=== PATIENT | female | born 2005 | race Two or more races ===

== ENCOUNTER 2025-09-18 02:19 | Emergency (ER) | payer MEDICAID, SELFPAY ==
[2025-09-18 02:20] VITALS: BMI 25.7
[2025-09-18 02:29] VITALS: BP 121/78; PULSE 90; RESP 18; TEMP 36.9; O2SAT 97
--- NOTE | 2025-09-18 02:52 | XR_ITS ---
Examination: Abdomen sonogram, Limited Date and time of exam: September 18, 2025, 0305 hours INDICATIONS: Abdominal pain beginning 3 days ago Technique: Real-time adame scale transabdominal sonographic images of the upper abdomen obtained. Findings: Normal gallbladder Normal common bile duct 0.2 cm Pancreatic head 2.0 cm Liver 13.3 cm no liver lesions Normal hepatopetal portal venous flow Patent IVC IMPRESSION: Negative study
--- NOTE | 2025-09-18 02:52 | XR_ITS ---
Examination: Retroperitoneal ultrasound, complete Technique: Multiple high resolution grayscale images of the retroperitoneum obtained, including kidneys and bladder. Exam date and time: September 18, 2025, 0312 hours INDICATIONS: Abdominal pain back pain beginning 3 days ago. FINDINGS: Right kidney 10.3 cm renal cortex 1.5 cm Left kidney 10.5 cm renal cortex 1.7 cm No renal calculi or hydronephrosis Contracted urinary bladder IMPRESSION: No hydronephrosis or renal calculi
--- NOTE | 2025-09-18 02:52 | PD.EDRME ---
Rapid Medical Screening Exam RME Arrival date/time: 09/18/25 02:19 This is a case of 30-year-old female with no medical history came in in the emergency room due to right upper abdominal pain radiating to the right flank with nausea vomiting for 2 days denies Chief Complaint: Abdominal Pain Time Seen by Provider: 09/18/25 02:52 Vital signs: Vital Signs Temperature 98.4 F 09/18/25 02:29 Pulse Rate 90 09/18/25 02:29 Respiratory Rate 18 09/18/25 02:29 Blood Pressure 121/78 09/18/25 02:29 Pulse Oximetry (%) 97 09/18/25 02:29 Oxygen Delivery Method Room Air 09/18/25 02:29 Exam: Moderate tenderness right upper quadrant right flank no guarding no rebound no rigidity Clinical Impression: Abdominal pain
[2025-09-18 04:00] LABS: Basophils # (Auto) 0.1 Thou/mm3 (0.0-0.2); Basophils % (Auto) 0 % (0-2.5); Eosinophils # (Auto) 0.1 Thou/mm3 (0.0-0.5); Eosinophils % (Auto) 1 % (0-10); Hematocrit 38.4 % (36.0-46.0); Hemoglobin 13.2 g/dL (12.0-16.0); Immature Granulocytes Auto 0.03 Thou/mm3 (0.00-0.00); Lymphocytes # (Auto) 2.7 Thou/mm3 (1.0-4.8); Lymphocytes % (Auto) 24 % (10-50); Mean Corpuscular HGB Conc 34.4 g/dl (31.0-37.0); Mean Corpuscular Hemoglobin 29.7 pg (25.0-35.0); Mean Corpuscular Volume 86 fL (80-100); Monocytes # (Auto) 0.6 Thou/mm3 (0.0-0.8); Monocytes % (Auto) 5 % (0-12); Neutrophils # (Auto) 7.8 Thou/mm3 (1.8-7.7); Neutrophils % (Auto) 69 % (37-80); Nucleated Red Blood Cell # 0.00 Thou/mm3 (0.00-0.00); Nucleated Red Blood Cell % 0 /100 WBC (0); Platelet Count 196 Thou/mm3 (140-440); RDW Standard Deviation 39.4 fL (36.4-46.3); Red Blood Count 4.45 Miln/mm3 (4.00-5.20); White Blood Count 11.3 Thou/mm3 (3.6-11.0)
--- NOTE | 2025-09-18 04:07 | PRELIM_ITS ---
Gallbladder ultrasound with Doppler and wave Doppler spectral analysis. September 18, 2025 at 0305 hours Clinical history: Abdominal pain. Comparison: No prior study is available for comparison. Findings: The visualized liver is normal in echogenicity without mass or ductal dilatation. No gallbladder calculus, wall thickening or pericholecystic fluid is identified. The common duct is normal in caliber at 1.9 mm. No free fluid is demonstrated on the submitted images. The portal vein is patent with hepatopetal flow and normal wave Doppler spectral analysis. The hepatic veins are patent with normal wave Doppler spectral analysis. The IVC is patent with normal wave Doppler spectral analysis. Impression: Unremarkable gallbladder sonogram. Report Electronically Signed By: Clint Zamora 09/18/2025 4:06:40 AM [EST]
[2025-09-18 04:11] LABS: Collection Type, Urine Clean Catch
--- NOTE | 2025-09-18 04:11 | PRELIM_ITS ---
Renal/Retroperitoneal ultrasound with Doppler. September 18, 2025 at 0312 hours Clinical history: Flank pain. Technique: Duplex scan of the bilateral renal arterial and venous tree was performed utilizing 2D grayscale imaging, Doppler spectral analysis and color flow. Comparison: None available at the time of this report. Findings: The ammonia box tender worksheet is not available at the time of this report. Right: The right kidney measures 10.3 cm and is unremarkable. There is no hydronephrosis or renal calculus. The corticomedullary differentiation is maintained. Left: The left kidney measures 10.5 cm and is unremarkable. There is no hydronephrosis or renal calculus. The corticomedullary differentiation is maintained. The urinary bladder is unremarkable. There is no abnormalities by Doppler. Impression: Unremarkable renal ultrasound examination. Report Electronically Signed By: Clint Zamora 09/18/2025 4:10:45 AM [EST]
[2025-09-18 04:17] LABS: HCG Qualitative,Urine Negative
[2025-09-18 04:21] LABS: Bacteria,Urine Rare; Bilirubin,Urine Negative (Negative); Blood,Urine Negative (Negative); Clarity,Urine Clear (Clear/Hazy); Color,Urine Lt-Yellow (Lt Yel-Yel); Glucose, Urine Negative (Negative); Ketones,Urine Negative (Negative); Leukocyte Esterase,Urine Negative (Negative); Nitrite,Urine Negative (Negative); PH,Urine 7.5 (5.0-7.0); Protein,Urine Negative (Neg - Trace); RBC,Urine 3 /hpf (0-3); Specific Gravity,Urine 1.024 (1.001-1.035); Squamous Epithelial Cell,Urine < 1 /hpf (0-5); Urobilinogen,Urine 2.0 mg/dL (0.0-1.0); WBC,Urine 2 /hpf (0-5)
[2025-09-18 04:29] LABS: Alanine Aminotransferase 19 U/L (10-49); Albumin, Serum 4.7 gm/dL (3.5-5.0); Albumin/Globulin Ratio 1.5 (1.2-2.2); Alkaline Phosphatase 90 U/L (46-116); Anion Gap 9 (7-16); Aspartate Amino Transferase 19 U/L (0-34); BUN/Creatinine Ratio 11 Ratio (12-20); Bilirubin,Total 0.3 mg/dL (0.3-1.2); Blood Urea Nitrogen 9 mg/dL (9-23); Calcium 9.3 mg/dL (8.3-10.6); Calcium (Corrected) 9.3 mg/dL (8.5-10.1); Carbon Dioxide 26.2 mMol/L (20.0-31.0); Chloride 109 mMol/L (98-107); Creatinine (Component) 0.8 mg/dL (0.6-1.3); Estimated Creatinine Clearance 105.4 mL/min (>60); Globulin 3.2 gm/dL (2.3-3.5); Glucose 106 mg/dL (74-106); Lipase 33 U/L (12-53); Osmolality,Calculated 285 (275-295); Potassium 4.9 mMol/L (3.4-5.1); Sodium 144 mMol/L (136-145); Total Protein 7.9 gm/dL (5.7-8.2); eGFR > 60 See Note
--- NOTE | 2025-09-18 04:35 | PD.EDBACK ---
ED Back Injury Pain RME/HPI General Chief Complaint: Abdominal Pain Stated Complaint: RIGHT UPPER RIB PAIN AND BACK PAIN Time Seen by Provider: 09/18/25 02:52 Arrival date/time: 09/18/25 02:19 RME / HPI RME / HPI Narrative: 09/18/25 02:19 This is a case of 30-year-old female with no medical history came in in the emergency room due to right upper abdominal pain radiating to the right flank with nausea vomiting for 2 days denies 20-year-old female without significant past medical history, presents with right lower back pain and occasional right upper quadrant abdominal pain for weeks now but worse over the last couple of days. No vomiting. No fevers. No dysuria or hematuria. Not related to food intake. No trauma. No cough. No prior episodes. Exam: Moderate tenderness right upper quadrant right flank no guarding no rebound no rigidity Impression: Abdominal pain Related Data Previous Rx's ?Medication ?Instructions ?Recorded naproxen 500 mg tablet (Naprosyn) 500 mg PO BID PRN pain #20 tabs 09/18/25 Allergies Allergy/AdvReac Type Severity Reaction Status Date / Time No Known Allergies Allergy Verified 09/18/25 02:22 Review of Systems Review of Systems Systems Reviewed: All systems reviewed, normal except as documented ED Exam Narrative Physical exam: Generally patient is alert and orient x 3 in no obvious distress, heart regular rate and rhythm, lungs clear to auscultation equal bilaterally, abdomen soft bowel sounds present nondistended nontender currently, musculoskeletal exam shows the patient have reproducible tenderness to palpation over the right sacroiliac joint, skin is warm pale and dry, neurologic exam no focal motor deficits with [place] Coma Scale of 15 Course Quality Measures none Orders Category Date Time Status US gall bladder Stat Exams 09/18/25 02:52 Taken US renal BI Stat Exams 09/18/25 02:52 Taken Beta HCG,Quantitative Stat Lab 09/18/25 03:46 Results CBC Stat Lab 09/18/25 03:46 Completed Comprehensive Metabolic Panel Stat Lab 09/18/25 03:46 Results HCG Qualitative,Urine Stat Lab 09/18/25 03:33 Completed Lipase Stat Lab 09/18/25 03:46 Results Urinalysis Stat Lab 09/18/25 03:33 Completed Vital Signs Vital signs: Vital Signs Temperature 98.4 F 09/18/25 02:29 Pulse Rate 90 09/18/25 02:29 Respiratory Rate 18 09/18/25 02:29 Blood Pressure 121/78 09/18/25 02:29 Pulse Oximetry (%) 97 09/18/25 02:29 Oxygen Delivery Method Room Air 09/18/25 02:29 Back Pain / Injury MDM Narrative MDM Narrative:: This workup was ordered prior to my evaluation. I interpreted all labs. There is no leukocytosis. No urine infection. is negative. Gallbladder ultrasound negative. Renal ultrasound negative. Patient has musculoskeletal back pain. Patient is take Naprosyn as prescribed. Follow-up with her doctor. Return to ER as needed or if condition worsens. Patient data External records reviewed:: Other (specify) Clinical information provided by:: none Social determinants that could affect healthcare access:: none Patient has the following chronic illnesses:: None How is presenting disease/condition affected by chronic disease/condition?: no chronic disease Evaluation data The following diagnostics were reviewed and interpreted by me:: other (specify) Lab and/or radiology exams considered but not ordered:: None Interpretation Summary: None Medications / Prescriptions Medications or Prescriptions considered but not ordered:: None Medication administrations:: None Consultations Consultation(s) initiated? (list below): No Diagnosis Most likely diagnosis given after review of the tests above:: None Admission Indicated Admission indicated?: not indicated Admission Request Was there a request for admission?: No Disposition Plan Disposition Plan: Discharge Discharge Attestation Discharge Attestation: The patient and all family members were given an opportunity to ask questions and understood the discharge instructions. Discharge instructions specifically effects, indications for sooner follow up or return to the emergency department, and the expected course of current diagnosis. Patient condition: Stable Discharge Plan Plan Patient Disposition: HOME (Self Care) Prescriptions/Referrals Prescriptions/Med Rec: New naproxen [Naprosyn] 500 mg tablet 500 mg PO BID PRN (Reason: pain) Qty: 20 0RF Referrals: No Primary/Family,Physician [Primary Care Provider] - In 1 week Problem List Clinical Impression: Musculoskeletal back pain Patient/Caregiver Discharge Instructions Education Materials: ED Back Pain (Acute or Chronic) Additional Instructions: Medicine as prescribed. Apply warm to painful areas. Follow-up with your doctor as needed. Print Language: Danish Stand Alone Forms: Bessy Award Info., Patient Portal Info Letter
[2025-09-18 05:10] LABS: Beta HCG,Quantitative 1 mIU/mL (<5.0)
== END 2025-09-18 04:47 | disposition home or self-care (01) ==
PROVIDERS: Nurse Practitioner Family; Emergency Provider Emergency Medicine
DX: M54.50 Low back pain, unspecified (principal); R10.11 Right upper quadrant pain
CPT/HCPCS: 36415; 76705; 76770; 80053; 81001; 81025; 83690; 84702; 85025; 99283